=== PATIENT | female | born 1970 | race Caucasian/White ===

== ENCOUNTER 2018-10-22 07:00 | Day surgery (SDC) | payer OTHER | END 2018-10-22 19:35 | disposition home or self-care (01) | LOC: CIR.AMB 07:00 | DX: S63.641A Sprain of metacarpophalangeal joint of right thumb, initial encounter (principal) ==

== ENCOUNTER 2018-11-25 14:35 | Emergency (ER) | payer OTHER ==
[~2018-11-25] VITALS: Ht 160 cm; Wt 94.3 kg
== END 2018-11-26 05:00 | disposition home or self-care (01) ==
LOC: ER 14:35
DX: L08.89 Other specified local infections of the skin and subcutaneous tissue (principal); T81.89XS Other complications of procedures, not elsewhere classified, sequela